=== PATIENT | female | born 1970 | race Caucasian/White ===

== ENCOUNTER 2018-09-06 07:15 | Day surgery (SDC) | payer OTHER ==
[~2018-09-06] VITALS: Ht 160 cm; Wt 55.1 kg
[~2018-09-06 07:15] MED LIST: ADVIL200 MG NG; ADVIL200 MG PO; ASPIR-TRIN325 MG PO; AUGMENTIN 875-1 EACH PO; BACTRIM DS TAB1 EACH PO; CHANTIX1 MG PO; COLACE100 MG PO; ERYTHROMYCIN1 GM OP; FLOMAX0.4 MG PO; FLUOXETINE HCL20 MG PO; KEFLEX500 MG PO; KETOROLAC TROME10 MG PO; KLOR-CON 1010 MEQ PO; NORCO 5-325 TA1 EACH PO; PERCOCET 5-3251 EACH PO; PRILOSEC20 MG PO; STAY AWAKE200 MG PO; TYLENOL EXTRA500 MG PO; TYLENOL WITH C1 EACH PO; ZOFRAN ODT4 MG PO; ZOFRAN4 MG PO
--- NOTE | 2018-09-06 09:15 | NUR ---
09/06/18 0915 Yaneth King 0905 PT TO PACU UNRESPONSIVE TO PAINFULL STIMULI. RESPARATIONS EVEN AND NOT LABORED O2 ON 2L.
--- NOTE | 2018-09-07 08:45 | OR ---
[facility] [address], [place] [address] Signed DATE OF OPERATION: 09/06/2018 SURGEON: Marlin Lima MD PREOPERATIVE DIAGNOSES: 1. Hiatal hernia with Chao's esophagus. 2. Gastroesophageal reflux disease. 3. Change in bowel habits with constipation moving to diarrhea. 4. Long history of nausea and vomiting. 5. Father with history of colon polyps in his 60s. 6. Weight loss of 60 pounds over a year. POSTOPERATIVE DIAGNOSES: 1. Moderate sized hiatal hernia. 2. Short-segment Chao's esophagus. 3. Mild diffuse gastritis. 4. Minimal internal hemorrhoids. 5. A 5 mm polyp at 15 cm. 6. A 7 mm polyp at 35 cm (snare). PROCEDURES: 1. EGD with CLOtest and biopsies of the antrum and GE junction. 2. Colonoscopy with snare polypectomy, and hot biopsy. ESTIMATED BLOOD LOSS: None. INDICATIONS: Odalys is a 47-year-old female who presents as above. She had actually been to her polymer materials consultant couple of years ago and he wanted her back I think on the 3rd year to follow up the Chao's esophagus. She is pretty sure there was some dysplastic cells. She is known to have a hiatal hernia of course, but has minimal acid reflux symptoms. She also lost about 60 pounds a year ago and she has had been stable at that point. Her primary care provider has been evaluating her very thoroughly with respect to the above. She also talks about long history of nausea and vomiting in a more recent change in bowel habits with constipation turning to diarrhea. She also told me that her father had colonic polyps in his 60s. In the office, I gave Odalys a pamphlet on upper and lower endoscopy and we reviewed that together. She understands the nature of the test along with the risks including, but not limited to gas, bloating, crampy abdominal pain, bleeding, perforation, requiring surgery, and missed diagnosis. She also understands Portions of this report were created using voice recognition software. There may be inadvertent computer error. Please read with context in mind. If there are any questions, please contact me. Electronically Signed By: MARLIN LIMA MD 09/07/18 0845 PATIENT NAME: ODALYS ALVAREZ OPERATIVE REPORT DATE OF : 66 REPORT #: [id number] PHYSICIAN: MARLIN LIMA MD PCP: JESSICA GUERRA MD REPORT IS CONFIDENTIAL AND NOT TO BE RELEASED WITHOUT AUTHORIZATION [facility] [address] [place] [id number] Signed the need for IV conscious sedation. She had expressed understanding and wished to proceed. PROCEDURE NOTE: Odalys was taken into our endoscopy suite and placed in the left lateral decubitus position. She was given IV sedation with a total of 14 mg of Versed and 200 mcg of fentanyl to cover both the upper and lower endoscopy. The posterior oropharynx was anesthetized with Hurricaine spray. A bite block was utilized for the case. The adult gastroscope had been introduced and advanced under direct visualization of camera out into the third portion of the duodenum. She did have a little saliva on her vocal cords and so she was coughing throughout the case. I think that added to some of the need for the IV sedation along with some of her anxiety. The duodenum and pyloric channel were unremarkable. She had a little bit of redness in her antrum and stomach, so we took a biopsy of the antrum for CLOtest as well as pathologic review. Upon retroflexion of scope, the incisura, body, and fundus of the stomach were unremarkable. She does have a small to moderate sized hiatal hernia. There was no gastric or esophageal varices. No Simon ulcer. No Madeleine-Ordaz tear. The scope was withdrawn up to the area of GE junction, which was compliant without stricture. She does have disruption to the Z-line and probably some early Chao's mucosa there. We went ahead and took a biopsy from that area, but we were having a lot of difficulty because of all of her coughing and moving about. Consequently we normally would have taken more biopsies. The distal, middle, and upper esophagus showed no evidence of any esophagitis. The posterior oropharynx, retinoids, and vocal cords were all unremarkable. After this, the gas had been suctioned out and gastroscope removed. Overall, Odalys tolerated the procedure fine. Odalys was rotated into the left lateral decubitus position. Once we were able to suction out her posterior oropharynx more thoroughly, her coughing subsided. A digital rectal exam was performed and she has good sphincter tone. The adult colonoscope was introduced and advanced all the way around into the cecum under direct visualization of camera. Odalys slight of build and her colon is pretty narrow and it took extra sedation and abdominal compression in order to get the scope particularly through the sigmoid colon, but to some extent the left colon as well. It also took additional sedation abdominal compression. Fortunately, her prep was quite good. We could easily see the appendiceal orifice and the ileocecal valve. The scope was then slowly withdrawn. Pictures were taken throughout for photodocumentation. We used our snare at 35 cm to divide the polyp and suction it through the scope. Hemostasis was excellent. No diverticulosis. Down at 15 cm at or slightly above the rectosigmoid junction was an another polyp, which we removed with a hot biopsy forceps. The rectum itself was unremarkable. Upon retroflexion of scope, she does have some minimal internal hemorrhoid columns. After this, the gas was suctioned out and the colonoscope removed. Odalys overall tolerated both her procedure quite well. If she has any recall or issues Portions of this report were created using voice recognition software. There may be inadvertent computer error. Please read with context in mind. If there are any questions, please contact me. Electronically Signed By: MARLIN LIMA MD 09/07/18 0845 PATIENT NAME: ODALYS ALVAREZ OPERATIVE REPORT DATE OF : 66 REPORT #: [id number] PHYSICIAN: MARLIN LIMA MD PCP: JESSICA GUERRA MD REPORT IS CONFIDENTIAL AND NOT TO BE RELEASED WITHOUT AUTHORIZATION [address] [address] Signed with the colonoscopy, she might consider propofol on the next occasion. RECOMMENDATIONS: I will see Odalys back in my office in 7 to 14 days to review her results. She may or may not consider propofol in the next colonoscopy depending on her recall of the procedure. Marlin Lima MD ALB/MODL /[id number] cc: MD Jessica Hays Copies: MARLIN LIMA MD ~ Portions of this report were created using voice recognition software. There may be inadvertent computer error. Please read with context in mind. If there are any questions, please contact me. Electronically Signed By: MARLIN LIMA MD 09/07/18 0845 PATIENT NAME: ODALYS ALVAREZ OPERATIVE REPORT DATE OF : 66 REPORT #: [id number] PHYSICIAN: MARLIN LIMA MD PCP: JESSICA GUERRA MD REPORT IS CONFIDENTIAL AND NOT TO BE RELEASED WITHOUT AUTHORIZATION
== END 2018-09-06 10:15 | disposition home or self-care (01) ==
LOC: OPS 07:15 → DS 07:15 → OPS 10:15
PROVIDERS: Colon & Rectal Surgery
PROC: 0DB48ZZ Excision of Esophagogastric Junction, Via Natural or Artificial Opening Endoscopic (ICD-10-PCS; 2018-09-06)
PROC: 0DBE8ZZ Excision of Large Intestine, Via Natural or Artificial Opening Endoscopic (ICD-10-PCS; principal; 2018-09-06 08:15)
PROC: 0DB78ZX Excision of Stomach, Pylorus, Via Natural or Artificial Opening Endoscopic, Diagnostic (ICD-10-PCS; 2018-09-06 08:15)
DX: D12.6 Benign neoplasm of colon, unspecified (principal); K29.50 Unspecified chronic gastritis without bleeding; K64.8 Other hemorrhoids; K21.0 Gastro-esophageal reflux disease with esophagitis; K44.9 Diaphragmatic hernia without obstruction or gangrene; K22.70 Barrett's esophagus without dysplasia; Z88.5 Allergy status to narcotic agent; Z79.899 Other long term (current) drug therapy
CPT/HCPCS: 86677; 88305; 88313; 99153; G0500; J2250; J2405; J3010; J7120

== ENCOUNTER 2018-10-02 06:00 | Emergency (ER) | payer OTHER ==
[~2018-10-02] VITALS: Ht 160 cm; Wt 55.1 kg
--- OUTSIDE RECORDS SUMMARY | 2018-10-02 06:02 | XMS ---
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 Care History Medical/Surgical 06/07/2018 [facility] - PATIENT HAS AN APT TO SWITCH AND ESTABLISH CARE WITH DR GUERRA ON 06/27/18 @ 9:30AM. - PATIENT WAS LAST SEEN BY CURRENT PCP ALESSIA TAVAREZ ON 05/01/18. E.D. VISIT COUNT (12 MO.) 3 [facility] TOTAL 3 NOTE: Visits indicate total known visits. 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 [place] TYPE: Emergency COMPLAINT: - EYE PROBLEM/NON INJURY DIAGNOSES: - Other computer terminal operator (current) drug therapy - OTHER SPECIFIED DISORDERS OF EYE AND ADNEXA - Nicotine dependence, unspecified, uncomplicated - Personal history of urinary calculi - Hordeolum externum left upper eyelid - Allergy status to narcotic agent status INPATIENT VISIT TRACKING (12 MO.) No inpatient visits to display in this time frame [email or web address]
[2018-10-02] MEDS ORDERED: ONDANSETRON ODT8 MG PO (08:38)
== END 2018-10-02 09:02 | disposition home or self-care (01) ==
LOC: ED 06:00
DX: K52.9 Noninfective gastroenteritis and colitis, unspecified (principal); Z87.442 Personal history of urinary calculi; Z88.5 Allergy status to narcotic agent; Z79.899 Other long term (current) drug therapy
CPT/HCPCS: 80053; 81001; 83690; 84703; 85025; 96374; 96376; 99284-25; J2405; J7030